=== PATIENT | female | born 1940 | race Caucasian/White ===

== ENCOUNTER 2017-11-15 17:41 | Inpatient (IN) | payer MEDICARE, BC ==
[~2017-11-15 17:41] MED LIST: ISOVUE-370 76%-LOCM 1 ML ONE
[2017-11-15] MEDS ORDERED: Fentanyl 100 MCG/2 ML VIAL ONE (17:52)
[2017-11-15] MEDS ORDERED: Ondansetron HCl/PF 4 MG/2 ML Vial ONE (17:52)
[2017-11-15] MEDS ORDERED: Adacel (T-DAP) 0.5 ML VIAL ONE (18:13)
[2017-11-15 18:23] LABS: Hemoglobin 12.9 g/dL (12.0-16.0); Mean Corpuscular HGB CONC 32.9 g/dL (32.0-36.0); Mean Corpuscular Hemoglobin 36.7 pg (27.0-31.0); Mean Platelet Volume 6.8 fL (7.4-10.4); Platelet Count 269 thou/uL (130-400); RBC Distribution Width 11.8 % (11.5-14.5); Red Blood Cell (RBC) Count 3.51 mill/uL (4.20-5.40); White Blood Cell (WBC) Count 8.8 thou/uL (4.8-10.8)
[2017-11-15 18:26] LABS: PTT 24.2 SEC (22.9-36.1); Prothrombin Time 13.1 SEC (12.0-14.7)
[2017-11-15 18:35] LABS: ALT (SGPT) 188 U/L (8-55); AST (SGOT) 229 U/L (5-34); Albumin 3.9 g/dL (3.4-4.8); Alkaline Phosphatase 47 U/L (40-150); Anion Gap 16 mmol/L (10-20); BUN (Urea Nitrogen) 24 mg/dL (9.8-20.1); Bilirubin, Total 0.5 mg/dL (0.2-1.2); Calc. Creatinine Clearance 0 mL/min (70-130); Calcium 9.1 mg/dL (7.8-10.44); Carbon Dioxide 22 mmol/L (23-31); Chloride 107 mmol/L (98-107); Estimated GFR-MDRD 78; Globulin 2.3 g/dL (2.4-3.5); Glucose 117 mg/dL (83-110); Lipase 22 U/L (8-78); Potassium 4.8 mmol/L (3.5-5.1); Protein, Total 6.2 g/dL (6.0-8.3); Sodium 140 mmol/L (136-145)
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
[2017-11-15 18:47] LABS: #Lymphocytes 0.8 thou/uL (1.20-3.40); #Monocytes 0.7 thou/uL (0.11-0.59); #Neutrophils 7.3 thou/uL (1.40-6.50); %Basophils 0.1 % (0.0-1.0); %Eosinophils 0.3 % (0.0-10.0); %Lymphocytes 8.9 % (21.0-51.0); %Monocytes 7.7 % (0.0-10.0); MDiff Complete? YES; Microcytosis MODERATE=15-30 cells (100X) (0-5/hpf); PLT Morphology Comment Appears Adequate
[2017-11-15] MEDS ORDERED: Morphine 4 MG/ML VIAL ONE ×2 (18:56→22:12)
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
--- NOTE | 2017-11-15 19:16 | RAD ---
LEFT HAND THREE VIEWS: 11/15/2017 HISTORY: Injury. Trauma. Pain. COMPARISON: None. FINDINGS: There is an old fracture of the ulnar styloid. There is an old fracture of the distal radius that is post ORIF. There is multilevel prominent degenerative change, including the first metacarpophalange al joint, as well as the proximal and interphalangeal joints of the 2nd through 5th fingers. Positio hermelindo of the patient and marked degenerative change limits detailed assessment for nondisplaced fractu re or dislocation. No displaced fracture is seen. IMPRESSION: No displaced fracture or evidence of dislocation. If symptoms persist, followup in 7-10 days advised . POS: [facility]
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
--- NOTE | 2017-11-15 19:22 | RAD ---
LEFT HUMERUS FRONTAL AND LATEARL IMAGIN11/15/2017 HISTORY: Injury. Trauma. Pain. COMPARISON: None. FINDINGS: There is a comminuted fracture involving the left humeral head and neck. There is a fracture line ex tending to the articular surface of the left humeral head, laterally, in the region of the greater tu berosity. An obliquely oriented, comminuted fracture is seen in the region of the left humeral neck as well. IMPRESSION: Comminuted fracture of the proximal left humerus, as above. POS: [facility]
[2017-11-15] MEDS ORDERED: Acetaminophen 500 MG TAB ONE (19:45)
[2017-11-15 21:10] LABS: Bilirubin Negative (Negative); Blood, Urine Negative (Negative); Clarity CLEAR (Clear); Glucose, Urine (Dipstick) Negative (Negative); Leukocyte Negative (Negative); Nitrite Negative (Negative); Protein, Urine (Dipstick) Negative (Neg-Trace); Specific Gravity, Urine 1.036 (1.002-1.036); Urobilinogen 0.2 mg/dL (0.2-1.0); pH, Urine 6.5 (5.0-9.0)
[2017-11-15] MEDS ORDERED: Rib Fracture Protocol IV SCH (21:43)
[2017-11-15] MEDS ORDERED: Dextrose 50% Abboject 50 ML SYRINGE SLOW IVP PRN (21:43)
[2017-11-15] MEDS ORDERED: hydrALAZINE 20 MG/ML VIAL SLOW IVP PRN (21:43)
[2017-11-15] MEDS ORDERED: Dextrose 5% in Water 1,000 ML IV PRN (21:43)
[2017-11-15] MEDS ORDERED: Ondansetron ODT 4 MG TAB PO PRN (21:43)
[2017-11-15] MEDS ORDERED: Ondansetron HCl/PF 4 MG/2 ML Vial IVP PRN (21:43)
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
[2017-11-15] MEDS ORDERED: Famotidine 20 MG TAB PO SCH (22:00)
[2017-11-15] MEDS: Ketorolac Tromethamine 30 MG/ML VIAL IVP SCH (23:36)
[2017-11-15] MEDS ORDERED: Acetaminophen 325 MG TAB PO PRN (23:51)
[2017-11-15] MEDS ORDERED: Acetaminophen 650 MG Suppository PR SCH (23:59)
[2017-11-16 02:37] VITALS: BMI 21.1
[2017-11-16] MEDS: Ketorolac Tromethamine 30 MG/ML VIAL IVP SCH (05:22)
[2017-11-16 05:59] LABS: #Lymphocytes 0.8 thou/uL (1.20-3.40); #Monocytes 0.5 thou/uL (0.11-0.59); #Neutrophils 3.9 thou/uL (1.40-6.50); %Basophils 0.7 % (0.0-1.0); %Eosinophils 0.7 % (0.0-10.0); %Lymphocytes 14.9 % (21.0-51.0); %Monocytes 9.8 % (0.0-10.0); Hemoglobin 11.3 g/dL (12.0-16.0); Mean Corpuscular HGB CONC 32.7 g/dL (32.0-36.0); Mean Corpuscular Hemoglobin 36.8 pg (27.0-31.0); Mean Platelet Volume 6.8 fL (7.4-10.4); Platelet Count 239 thou/uL (130-400); RBC Distribution Width 11.8 % (11.5-14.5); Red Blood Cell (RBC) Count 3.07 mill/uL (4.20-5.40); White Blood Cell (WBC) Count 5.2 thou/uL (4.8-10.8)
[2017-11-16] MEDS ORDERED: Acetaminophen 325 MG TAB PO SCH (06:00)
[2017-11-16 06:11] LABS: Anion Gap 11 mmol/L (10-20); BUN (Urea Nitrogen) 19 mg/dL (9.8-20.1); Calc. Creatinine Clearance 70 mL/min (70-130); Calcium 8.2 mg/dL (7.8-10.44); Carbon Dioxide 21 mmol/L (23-31); Chloride 109 mmol/L (98-107); Estimated GFR-MDRD Greater than 90; Glucose 96 mg/dL (83-110); Potassium 4.1 mmol/L (3.5-5.1); Sodium 137 mmol/L (136-145)
[2017-11-16] MEDS: Famotidine 20 MG TAB PO SCH ×2 (08:15→20:45)
[2017-11-16] MEDS ORDERED: Rib Fracture Protocol PO SCH (08:30)
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
[2017-11-16] MEDS: Gabapentin 100 MG CAP PO SCH ×3 (09:53→20:45)
[2017-11-16] MEDS: traMADol HCl 50 MG TAB PO SCH ×2 (09:53→18:26)
[2017-11-16] MEDS: Polyethylene Glycol 3350 17 GM Packet PO SCH (10:01)
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
[2017-11-16] MEDS: Acetaminophen 500 MG TAB PO SCH ×2 (12:30→18:25)
[2017-11-16] MEDS: Cyclobenzaprine 10 MG TAB PO PRN ×2 (12:55→20:45)
[2017-11-16] MEDS: Ibuprofen 600 MG TAB PO SCH ×2 (16:05→19:38)
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
[2017-11-17] MEDS: traMADol HCl 50 MG TAB PO SCH ×4 (00:59→14:13)
[2017-11-17] MEDS: Acetaminophen 500 MG TAB PO SCH ×3 (00:59→14:01)
[2017-11-17] MEDS: Ibuprofen 600 MG TAB PO SCH (05:28)
[2017-11-17] MEDS ORDERED: traMADol HCl 50 MG TAB PO PRN ×2 (05:58→08:45)
[2017-11-17 06:56] LABS: Anion Gap 10 mmol/L (10-20); BUN (Urea Nitrogen) 14 mg/dL (9.8-20.1); Calc. Creatinine Clearance 65 mL/min (70-130); Calcium 8.4 mg/dL (7.8-10.44); Carbon Dioxide 28 mmol/L (23-31); Chloride 106 mmol/L (98-107); Estimated GFR-MDRD 86; Glucose 118 mg/dL (83-110); Magnesium 1.7 mg/dL (1.6-2.6); Phosphorus 3.1 mg/dL (2.3-4.7); Sodium 140 mmol/L (136-145)
[2017-11-17] MEDS ORDERED: Magnesium 2 GM/50 ML 2 GM in Premix Bag 1 BAG IVPB SCH (08:45)
[2017-11-17] MEDS ORDERED: Prevnar 13-Val Conj/PF 0.5 ML SYRINGE IM ONE (09:00)
[2017-11-17] MEDS ORDERED: Enoxaparin Sodium 30 MG/0.3 ML SYRINGE SC SCH (10:08)
[2017-11-17] MEDS: Gabapentin 100 MG CAP PO SCH ×2 (10:40→17:05)
[2017-11-17] MEDS: Polyethylene Glycol 3350 17 GM Packet PO SCH (10:40)
[2017-11-17] MEDS: Famotidine 20 MG TAB PO SCH (10:41)
[2017-11-17 15:08] VITALS: BP 125/71; TEMP 98.2
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
[2017-11-17] MEDS: Cyclobenzaprine 10 MG TAB PO PRN (15:56)
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
[2017-11-18] MEDS ORDERED: Enoxaparin Sodium 30 MG/0.3 ML SYRINGE SC SCH (09:53)
== END 2017-11-17 16:00 | DRG 184 ==
LOC: ERS 17:41 → SURG A 22:36
PROVIDERS: ADMIT Surgery; ATTEND Surgery
DX: S22.42XA Multiple fractures of ribs, left side, initial encounter for closed fracture (principal); S42.202A Unspecified fracture of upper end of left humerus, initial encounter for closed fracture; S32.019A Unspecified fracture of first lumbar vertebra, initial encounter for closed fracture; S32.039A Unspecified fracture of third lumbar vertebra, initial encounter for closed fracture; S32.049A Unspecified fracture of fourth lumbar vertebra, initial encounter for closed fracture; S32.059A Unspecified fracture of fifth lumbar vertebra, initial encounter for closed fracture; V89.2XXA Person injured in unspecified motor-vehicle accident, traffic, initial encounter; Y93.9 Activity, unspecified; Y92.9 Unspecified place or not applicable; T14.8XXA Other injury of unspecified body region, initial encounter; M06.9 Rheumatoid arthritis, unspecified; F41.8 Other specified anxiety disorders; E03.9 Hypothyroidism, unspecified; K21.9 Gastro-esophageal reflux disease without esophagitis; K22.70 Barrett's esophagus without dysplasia
CPT/HCPCS: 36415; 70450; 71045; 71260; 72125; 72170; 74177; 80048; 80053; 81003; 83690; 83735; 84100; 85025; 85610; 85730; 90471; 90715; 93005; 94760; 96361; 96374; 96375; 96376; G0390; G8978-GP-CL; G8979-GP-CJ; G8987-GO-CL; G8988-GO-CJ; J1885; J2270; J2405; J3010; J7620; L0639; Q0162